=== PATIENT | female | born 1990 | race Caucasian/White ===

== ENCOUNTER 2017-01-03 10:44 | Emergency (ER) | payer OTHER ==
[2017-01-03 10:54] VITALS: BP 100/60
[2017-01-03] MEDS ORDERED: Aspirin EC Low Dose* 81 MG TAB.EC PO ONE (11:21)
[2017-01-03] MEDS ORDERED: Aspirin Low Dose CHEW TAB* 81 MG PO ONE (11:25)
[2017-01-03] MEDS ORDERED: Aspirin Low Dose CHEW TAB* 81 MG ONE (11:25)
--- NOTE | 2017-01-16 09:18 | UC ---
Timbo Canela Angela, scribed for Bridgett Welch MD on 01/03/17 at 1108 . Cardiac HPI - HPI Summary HPI Summary: This pt is a 26 y/o presenting to [facility] c/o chest pain, SOB, hand shakiness since yesterday. Pt reports her chest pain is constant and has been worsening over the last 24 hours. At its worse, it is a moderate pain rated 6 out of 10 in severity. Initially her chest pain was rated 3 out of 10 in severity. 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 A couple of weeks ago pt went on a 5 hour ride in the country. Pt denies out of the country travel, LE swelling, calf pain. Pt is currently on control pills (for a few years now). She will start her menstrual cycle in a couple of days. Pt denies PMHx of thyroid disease (she has been tested). She reports FHx of heart disease and CA on father's side. - History of Current Complaint Chief Complaint: UCChestPain Stated Complaint: CHEST PAIN AND SHORTNESS OF BREATH Time Seen by Provider: 01/03/17 10:57 Hx Obtained From: Patient Hx Last Menstrual Period: 12/06/16 Onset/Duration: Lasting Hours - 24 hours Initial Severity: Mild - 3/10 pain Current Severity: Moderate - 6/10 pain Pain Intensity: 6 - out of 10 Aggravating Factor(s): Exertion Associated Signs & Symptoms: Positive: Chest Pain, SOB. Negative: Headaches, Diaphoresis, Nausea/Vomiting, Calf Pain/Swelling - Allergy/Home Medications Allergies/Adverse Reactions: Allergies Allergy/AdvReac Type Severity Reaction Status Date / Time No Known Allergies Allergy Verified 01/03/17 10:55 Home Medications: Home Medications Control 01/03/17 [History] PMH/Surg Hx/FS Hx/Imm Hx Other Endocrine History: DENIES: diabetes, thyroid disease Other Cardiovascular History: DENIES: HTN - Surgical History Surgical History: None - Family History Known Family History: Positive: Cardiac Disease - Father's side of family, Diabetes - Aunt, Other - Father's side: CA. Mother: hysterectomy, anxiety, depression. - Social History Alcohol Use: Weekly Substance Use Type: None Smoking Status (MU): Never Smoked Tobacco Review of Systems Constitutional: Negative Skin: Negative Eyes: Negative ENT: Negative Respiratory: Shortness Of Breath Cardiovascular: Chest Pain Gastrointestinal: Negative Genitourinary: Negative Motor: Negative Neurovascular: Negative Musculoskeletal: Other: - hand shaking Neurological: Negative All Other Systems Reviewed And Are Negative: Yes Physical Exam Triage Information Reviewed: Yes Appearance: Well-Nourished Vital Signs: Initial Vital Signs Temp 98.7 F 01/03/17 10:49 Pulse 107 01/03/17 10:49 Resp 20 01/03/17 10:49 BP 100/60 01/03/17 10:49 Pulse Ox 100 01/03/17 10:49 Vital Signs Reviewed: Yes Eye Exam: Normal ENT Exam: Normal Respiratory Exam: Normal Respiratory: Positive: Chest non-tender, Lungs clear, Normal breath sounds, No respiratory distress, No accessory muscle use Cardiovascular Exam: Normal Cardiovascular: Positive: RRR, No Murmur, Pulses Normal, Brisk Capillary Refill Abdominal Exam: Normal Abdomen Description: Positive: Nontender, No Organomegaly, Soft Bowel Sounds: Positive: Present Musculoskeletal Exam: Normal Musculoskeletal: Positive: Strength Intact Neurological Exam: Normal - nonfocal, grossly intact Psychological Exam: Normal - conversing easily and appropriately Skin: Positive: rashes - on the back Diagnostics - EKG Cardiac Rate: NL - 62 bpm Cardiac Rhythm: Sinus: Normal - CO: 142. QT/QTc: 417/424. PACs noted. No prior EKG for comparison. - Assessment/Plan Course Of Treatment: Patient offered and encouraged EMS. Patient declines. I spoke to Dr. Real from the ED at 11:48. - Clinical Impression Provider Diagnoses: chest pain. sob Discharge - Discharge Plan Condition: Stable Disposition: TRANS HIGHER LVL OF CARE FAC Patient Education Materials: Chest Pain (ED) Referrals: [facility] – [place] [facility]IAN REFERRAL [Outside] No Primary Care Phys,NOPCP [Primary Care Provider] - Additional Instructions: PLEASE GO DIRECTLY TO THE EMERGENCY DEPARTMENT. Don't stop to eat or drink. Stop and call 911 for any worsening problems. The documentation as recorded by the Timbo montoya Angela accurately reflects the service I personally performed and the decisions made by me, Bridgett Welch MD.
== END 2017-01-03 11:37 | disposition short-term general hospital (02) ==
LOC: UCEAST 10:44
DX: R07.89 Other chest pain (principal); R06.02 Shortness of breath; R25.1 Tremor, unspecified; Z32.02 Encounter for pregnancy test, result negative
CPT/HCPCS: 81003; 84702; 93005; 99212; A9270-GY; G0463

== ENCOUNTER 2017-01-03 12:23 | Emergency (ER) | payer BC, OTHER ==
[2017-01-03] MEDS ORDERED: Aspirin Low Dose CHEW TAB* 81 MG PO ONE (15:33)
[2017-01-03 16:03] LABS: Hematocrit 44 % (35-47); Hemoglobin 15.1 g/dl (12.0-16.0); Mean Corpuscular HGB Conc 34 g/dl (31-36); Mean Corpuscular Hemoglobin 30 pg (27-31); Mean Corpuscular Volume 87 fL (80-97); Mean Platelet Volume 7 um3 (7.4-10.4); Red Blood Count 5.04 10^6/ul (4.0-5.4); Red Cell Distribution Width 13 % (10.5-15); White Blood Count 7.4 10^3/ul (3.5-10.8)
--- NOTE | 2017-01-03 16:04 | RAD ---
INDICATION: Chest pain. COMPARISON: Comparison is made with a prior chest x-ray study from March 10, 2004. TECHNIQUE: A portable view of the chest was obtained. FINDINGS: Cardiac and mediastinal contours appear to be within normal limits. The lungs are clear. No pleural effusion is seen. IMPRESSION: NO EVIDENCE FOR ACUTE DISEASE.
[2017-01-03 16:21] LABS: ALT 26 U/L (7-52); AST 28 U/L (13-39); Albumin 4.7 g/dL (3.2-5.2); Alkaline Phosphatase 56 U/L (34-104); Anion Gap 7 mmol/L (2-11); BUN/Creatinine Ratio 15.2 (8-20); Blood Urea Nitrogen 12 mg/dL (6-24); CO2 Carbon Dioxide 26 mmol/L (22-32); Calcium 9.8 mg/dL (8.6-10.3); Chloride 103 mmol/L (101-111); EGFR Non-African American 88.7 (>60); Globulin 3.3 g/dL (2-4); Glucose 77 mg/dL (70-100); Potassium 3.7 mmol/L (3.5-5.0); Sodium 136 mmol/L (133-145)
[2017-01-03 17:00] VITALS: BP 100/14
[2017-01-03] MEDS ORDERED: Iohexol 350* (CONTRAST) 500 ML MDV IV ONE (17:01)
--- NOTE | 2017-01-03 17:49 | RAD ---
HISTORY: Chest pain, shortness of breath, elevated d-dimer COMPARISONS: None TECHNIQUE: Multiple contiguous axial CT scans of the chest were obtained after the administration of nonionic intravenous contrast, timed to the pulmonary arterial phase of contrast enhancement.. Coronal and sagittal multiplanar reformations are also submitted for review. FINDINGS: NECK AND THYROID: The lower neck and thyroid are unremarkable. CHEST WALL: There is no lower cervical, axillary, or supraclavicular lymphadenopathy by size criteria. HEART AND PERICARDIUM: The heart is unremarkable. AORTA AND PULMONARY VASCULATURE: There is no pulmonary arterial filling defect to suggest pulmonary embolism. There is no linear filling defect within the aorta to suggest aortic dissection. MEDIASTINUM: There is no mediastinal lymphadenopathy by size criteria. WOJCIECH: There is no hilar lymphadenopathy by size criteria. AIRWAY AND ESOPHAGUS: The airway is unremarkable, without endobronchial filling defect. The esophagus is grossly normal. LUNG PARENCHYMA: The lungs are clear. PLEURA: No pleural abnormalities are noted. UPPER ABDOMEN: The upper abdomen is unremarkable. BONES AND SOFT TISSUES: No bone or soft tissue abnormalities are noted. OTHER: None. IMPRESSION: NO PULMONARY ARTERIAL FILLING DEFECT TO SUGGEST PULMONARY EMBOLISM
--- NOTE | 2017-01-04 15:27 | ED ---
Herbert Canela Alfonso, scribed for Mateusz Rios MD on 01/03/17 at 1658 . HPI Chest Pain - HPI Summary HPI Summary: This patient is a 26 year old F presenting to [facility] with a chief complaint of CP since 929. The patient rates the pain 4/10 in severity. Symptoms aggravated by nothing. Symptoms alleviated by ASA received LICENSED PSYCHOLOGIST. Patient reports near- syncope, SOB (labored breathing), and tremors (hands) all of which have presently resolved. Patient denies arm pain, back pain, wheezing, fever, coughing, recent illness, and sour taste in mouth. She is currently on BCP (she has missed one dose this month) and her LKMP began today. She has not recently travelled. Patient is a non-smoker. FHx of CAD. Patient denies FHx of PE or DVT. PMHx includes anxiety and panic attacks. Patient notes this episode did not feel like previous panic attacks. - History of Current Complaint Chief Complaint: EDChestPainROMI Time Seen by Provider: 01/03/17 15:32 Hx Obtained From: Patient Hx Last Menstrual Period: 12/06/16 Onset/Duration: Started Hours Ago, Still Present Timing: Lasting Hours Initial Severity: Moderate Current Severity: Moderate Pain Intensity: 4 Pain Scale Used: 0-10 Numeric Aggravating Factor(s): Nothing Alleviating Factor(s): Medication - ASA received LICENSED PSYCHOLOGIST Associated Signs and Symptoms: Positive: Other: - near-syncope, SOB (labored breathing), and tremors (hands) - Allergy/Home Medications Allergies/Adverse Reactions: Allergies Allergy/AdvReac Type Severity Reaction Status Date / Time No Known Allergies Allergy Verified 01/03/17 10:55 PMH/Surg Hx/FS Hx/Imm Hx Sensory History: Denies: Hx Legally Blind EENT History: Denies: Hx Deafness Psychiatric History: Reports: Hx Anxiety, Hx Panic Disorder Infectious Disease History: No Infectious Disease History: Denies: Traveled Outside the [place] in Last 30 Days - Family History Known Family History: Positive: Cardiac Disease, Other - Negative: PE, DVT - Social History Alcohol Use: Weekly Substance Use Type: Reports: None Smoking Status (MU): Never Smoked Tobacco Review of Systems Negative: Fever, Chills Negative: Erythema Positive: Other - negative: sour taste in mouth. Negative: Sore Throat Positive: Chest Pain Positive: Shortness Of Breath, Other - negative: wheezing. Negative: Cough Negative: Abdominal Pain, Vomiting, Nausea Negative: dysuria, hematuria Positive: Other - negative: arm pain and back pain. Negative: Myalgia, Edema Negative: Rash Neurological: Other - tremors; negative: dizziness Positive: Syncope - near-syncope. Negative: Headache All Other Systems Reviewed And Are Negative: Yes Physical Exam Triage Information Reviewed: Yes Vital Signs On Initial Exam: Initial Vitals Temp Pulse Resp BP Pulse Ox 97.8 F 67 14 107/70 97 01/03/17 12:25 01/03/17 12:25 01/03/17 12:25 01/03/17 12:25 01/03/17 12:25 Vital Signs Reviewed: Yes Appearance: Positive: Well-Appearing, No Pain Distress, Well-Nourished Skin: Positive: Warm, Dry Head/Face: Positive: Normal Head/Face Inspection Eyes: Positive: Conjunctiva Clear Neck: Positive: Other: - Musculoskeletal ROM normal neck. (-) JVD, (-) Stridor, (-) Tracheal deviation, (-) Cervical adenopathy Respiratory/Lung Sounds: Positive: Other - Effort normal. (-) Respiratory distress, (-) Wheezes, (-) Rales Cardiovascular: Positive: RRR, Other - Heart sounds normal; Intact distal pulses ; The pedal pulses are 2+ and symmetric. Radial pulses are 2+ and symmetric. (- ) Murmur Abdomen Description: Positive: Nontender, Soft, Other: - Negative rebound. Negative: Distended, Guarding Musculoskeletal: Positive: Other - No costochondral tenderness.. Negative: Edema Left, Edema Right Neurological: Positive: Alert, Oriented to Person Place, Time Psychiatric: Positive: Affect/Mood Appropriate Diagnostics - Vital Signs Vital Signs Temp Pulse Resp BP Pulse Ox 01/03/17 16:02 98 01/03/17 14:41 97.4 F 62 12 102/76 100 01/03/17 12:25 97.8 F 67 14 107/70 97 - Laboratory Lab Results: Lab Results 01/03/17 01/03/17 01/03/17 Range/Units 15:52 15:52 15:52 WBC 7.4 (3.5-10.8) 10^3/ul RBC 5.04 (4.0-5.4) 10^6/ul Hgb 15.1 (12.0-16.0) g/dl Hct 44 (35-47) % MCV 87 (80-97) fL MCH 30 (27-31) pg MCHC 34 (31-36) g/dl RDW 13 (10.5-15) % Plt Count 347 (150-450) 10^3/ul MPV 7 L (7.4-10.4) um3 Neut % (Auto) 52.3 (38-83) % Lymph % (Auto) 39.5 (25-47) % [place] % (Auto) 6.6 (1-9) % Eos % (Auto) 0.9 (0-6) % Baso % (Auto) 0.7 (0-2) % Absolute Neuts (auto) 3.9 (1.5-7.7) 10^3/ul Absolute Lymphs (auto) 2.9 (1.0-4.8) 10^3/ul Absolute Monos (auto) 0.5 (0-0.8) 10^3/ul Absolute Eos (auto) 0.1 (0-0.6) 10^3/ul Absolute Basos (auto) 0.1 (0-0.2) 10^3/ul Absolute Nucleated RBC 0 10^3/ul Nucleated RBC % 0 Sodium 136 (133-145) mmol/L Potassium 3.7 (3.5-5.0) mmol/L Chloride 103 (101-111) mmol/L Carbon Dioxide 26 (22-32) mmol/L Anion Gap 7 (2-11) mmol/L BUN 12 (6-24) mg/dL Creatinine 0.79 (0.51-0.95) mg/dL Est GFR ( Amer) 114.0 (>60) Est GFR (Non-Af Amer) 88.7 (>60) BUN/Creatinine Ratio 15.2 (8-20) Glucose 77 (70-100) mg/dL Lactic Acid 0.7 (0.5-2.0) mmol/L Calcium 9.8 (8.6-10.3) mg/dL Total Bilirubin 0.40 (0.2-1.0) mg/dL AST 28 (13-39) U/L ALT 26 (7-52) U/L Alkaline Phosphatase 56 (34-104) U/L Troponin I 0.00 (<0.04) ng/mL Total Protein 8.0 (6.4-8.9) g/dL Albumin 4.7 (3.2-5.2) g/dL Globulin 3.3 (2-4) g/dL Albumin/Globulin Ratio 1.4 (1-3) Beta HCG, Quant < 0.60 mIU/mL Result Diagrams: 01/03/17 15:52 01/03/17 15:52 Lab Statement: Any lab studies that have been ordered have been reviewed, and results considered in the medical decision making process. - Radiology CXR Radiology Interpretation Completed By: Radiologist - NO EVIDENCE FOR ACUTE DISEASE. ED physician has reviewed this radiology report and agrees. - CT CTA Chest CT Interpretation Completed By: Radiologist - NO PULMONARY ARTERIAL FILLING DEFECT TO SUGGEST PULMONARY EMBOLISM. ED physician has reviewed this radiology report and agrees. - EKG 1233 Cardiac Rate: NL - BPM 64 EKG Rhythm: Sinus Rhythm EKG Interpretation: No STEMI Chest Pain Course/Dx - Course Assessment/Plan: This patient is a 26 year old F presenting to [facility] with a chief complaint of CP since 929. The patient rates the pain 4/10 in severity. Symptoms aggravated by nothing. Symptoms alleviated by ASA received LICENSED PSYCHOLOGIST. Patient reports near-syncope, SOB (labored breathing), and tremors (hands) all of which have presently resolved. Patient denies arm pain, back pain, wheezing, fever, coughing, recent illness, and sour taste in mouth. She is currently on BCP (she has missed one dose this month) and her LKMP began today. She has not recently travelled. Patient is a non-smoker. FHx of CAD. Patient denies FHx of PE or DVT. PMHx includes anxiety and panic attacks. Patient notes this episode did not feel like previous panic attacks. An EKG reveals NSR. CXR reveals NO EVIDENCE FOR ACUTE DISEASE. ED physician has reviewed this radiology report and agrees. CTA chest reveals NO PULMONARY ARTERIAL FILLING DEFECT TO SUGGEST PULMONARY EMBOLISM. ED physician has reviewed this radiology report and agrees. Trop is negative 8 hours after the event. The patient has no cardiac risk factors. Patient will be discharged with follow up from PCP in two days. The patient is agreeable with this plan. - Diagnoses Provider Diagnoses: Chest pain, unspecified Discharge - Discharge Plan Condition: Stable Disposition: HOME Patient Education Materials: Chest Pain (ED) Referrals: [facility] [place] [facility]IAN REFERRAL [Outside] - 2 Days Additional Instructions: RETURN TO THE EMERGENCY DEPARTMENT FOR CHANGING OR WORSENING SYMPTOMS. The documentation as recorded by the Herbert montoya Alfonso accurately reflects the service I personally performed and the decisions made by , Mateusz Rois MD.
== END 2017-01-03 18:08 | disposition home or self-care (01) ==
LOC: ED 12:23
DX: R07.9 Chest pain, unspecified (principal); F41.0 Panic disorder [episodic paroxysmal anxiety]
CPT/HCPCS: 36415; 71010; 71275; 80053; 83605; 84484; 84702; 85025; 85379; 93005; 96374; 99282; A9270-GY; Q9967